=== PATIENT | male | born 1990 | race Caucasian/White ===

== ENCOUNTER 2017-10-08 12:00 | Emergency (ER) | payer OTHER ==
[~2017-10-08] VITALS: Ht 167.6 cm; Wt 100.0 kg
[2017-10-08 12:10] VITALS: BP 161/85; Ht 167.6 cm; Wt 100.0 kg
== END 2017-10-08 14:57 | disposition left against medical advice (07) ==
LOC: ED 12:00
DX: Z53.21 Procedure and treatment not carried out due to patient leaving prior to being seen by health care provider (principal)